=== PATIENT | female | born 1950 | race Caucasian/White ===

== ENCOUNTER 2016-06-09 11:56 | Emergency (ER) | payer OTHER ==
[~2016-06-09] VITALS: Ht 149.9 cm; Wt 66.2 kg
[2016-06-09 12:01] VITALS: BP 159/79
[2016-06-09 12:38] LABS: BASOPHILS # (AUTO) 0.2 K/uL (0.00-0.22); BASOPHILS % (AUTO) 1.8 % (0.0-2.0); EOSINOPHILS # (AUTO) 0.2 K/uL (0-0.4); EOSINOPHILS % (AUTO) 1.2 % (0.0-4.0); HEMATOCRIT 44.8 % (36-48); LYMPHOCYTES # (AUTO) 2.2 K/uL (2.5-16.5); LYMPHOCYTES % (AUTO) 17.1 % (20.5-51.1); MEAN CORPUSCULAR HEMOGLOBIN 30 pg (27-31); MEAN CORPUSCULAR HGB CONC 34 g/dL (33-37); MEAN CORPUSCULAR VOLUME 88 fL (80-94); MONOCYTES # (AUTO) 0.6 K/uL (0.8-1.0); MONOCYTES % (AUTO) 4.3 % (1.7-9.3); NEUTROPHILS # (AUTO) 9.9 K/uL (1.8-7.7); NEUTROPHILS % (AUTO) 75.6 % (42.2-75.2); PLATELET COUNT (AUTO) 284 K/uL (140-450); RED BLOOD CELL COUNT(AUTO) 5.08 MIL/uL (4.20-5.40); RED CELL DISTRIBUTION WIDTH 12.9 % (11.6-13.7); WHITE BLOOD COUNT (AUTO) 13.2 K/uL (4.8-10.8)
[2016-06-09 12:55] LABS: ANION GAP 15.9 (8-16); CALCIUM 8.7 mg/dL (8.5-10.1); CREATININE 0.5 mg/dL (0.6-1.3); POTASSIUM 3.9 mmol/L (3.5-5.1)
[2016-06-09 13:00] LABS: TOTAL BILIRUBIN 0.5 mg/dL (0.0-1.0); TOTAL PROTEIN, SERUM 7.9 g/dL (6.4-8.2)
[2016-06-09 13:03] LABS: PARTIAL THROMBOPLASTIN TIME 26.7 secs (22-35.6); PROTHROMBIN TIME 9.9 secs (10.8-13.4)
[2016-06-09] MEDS ORDERED: ACET-2869 PO (15:28)
[2016-06-09] MEDS ORDERED: CARI350T PO (15:28)
[2016-06-09] MEDS ORDERED: IBUP-2213 PO (15:28)
[2016-06-09] MEDS ORDERED: METF500T PO (15:28)
[2016-06-09] MEDS ORDERED: KETOROLAC 60 MG/2 ML VIAL IM ONE (16:55)
[2016-06-09 17:35] VITALS: BP 143/61
== END 2016-06-09 17:35 | disposition home or self-care (01) ==
LOC: MED 11:56
DX: M54.6 Pain in thoracic spine (principal); R50.9 Fever, unspecified; E11.9 Type 2 diabetes mellitus without complications; I10 Essential (primary) hypertension
CPT/HCPCS: 36415; 71010; 80053; 83880; 84484; 85025; 85610; 85730; 93005; 96372; 99285; J1885